=== PATIENT | female | born 1950 | race Caucasian/White ===

== ENCOUNTER 2016-12-26 15:07 | Inpatient (IN) | payer OTHER ==
[~2016-12-26] VITALS: Wt 67.0 kg
[~2016-12-26 15:07] MED LIST: ASPI-535 PO; ATOR40TA68 PO; CALC-143 PO; HYDR25TA6 PO; KETO5DRO58 OP; LOSA25TA2 PO; TRAM50TA2 PO
[2016-12-26] MEDS ORDERED: NITROGLYCERIN 2% 1 GM OINT PKT TD STA (16:06)
[2016-12-26] MEDS ORDERED: ASPIRIN 81 MG TAB PO STA (16:06)
[2016-12-26] MEDS ORDERED: NITROGLYCERIN (SL) 0.4 MG TAB SL PRN ×2 (16:30→18:30)
[2016-12-26 16:33] LABS: BASOPHILS % 0.2 % (0.0-2.0); EOSINOPHILS # 0.5 10^3/ul (0.0-0.5); EOSINOPHILS % 6.6 % (0.0-7.0); HEMATOCRIT 41.7 % (37.0-47.0); HEMOGLOBIN 14.1 g/dl (12.0-16.0); LYMPHOCYTES # 2.3 10^3/ul (0.8-2.9); MEAN CORPUSCULAR HGB CONC 33.7 g/dl (32.0-37.0); MEAN CORPUSCULAR VOLUME 91.7 fl (82.0-101.0); MONOCYTE # 0.3 10^3/ul (0.3-0.9); MONOCYTES % 3.5 % (0.0-11.0); NEUTROPHIL # 4.5 10^3/ul (1.6-7.5); NEUTROPHILS % 59.7 % (39.0-77.0); PLATELET COUNT 220 10^3/UL (140-440); RED BLOOD COUNT 4.55 10^6/ul (4.20-5.40); RED CELL DISTRIBUTION WIDTH 12.3 % (11.5-14.5); UNCORRECTED WBC 7.5 10^3/ul (4.8-10.8); WHITE BLOOD COUNT 7.5 10^3/ul (4.8-10.8)
[2016-12-26 16:34] LABS: CONDITION 1
--- NOTE | 2016-12-26 16:41 | RADRPT ---
PROCEDURE: XR Chest. CLINICAL INDICATION: Chest pain TECHNIQUE: A single portable view of the chest was obtained. COMPARISON: 08/23/2016 FINDINGS: The aorta is tortuous and atherosclerotic. The cardiomediastinal silhouette is otherwise borderline in size. The lungs and pleural spaces are clear. The soft tissues and osseous structures demonstr ate benign age related senescent changes. IMPRESSION: 1. Borderline heart size. 2. Otherwise, no acute cardiopulmonary disease. RPTAT: HPNM Physician Kalee Date Time Electronically viewed and signed by Russ Sorensen Physician on 12/26/2016 16:40 /
[2016-12-26 16:42] LABS: INR 0.97; PROTIME 12.9 Sec (12.2-14.2)
[2016-12-26 16:43] LABS: PARTIAL THROMBOPLASTIN TIME 31.2 Sec (25.0-35.0)
[2016-12-26] MEDS ORDERED: ASPI-664 PO (16:43)
[2016-12-26] MEDS ORDERED: HYDR12.58 PO (16:43)
[2016-12-26] MEDS ORDERED: LOSA100T7 PO (16:44)
[2016-12-26] MEDS ORDERED: ESCI10TA48 PO (16:44)
[2016-12-26 16:45] LABS: CHLORIDE 100 mmol/L (97-110); SODIUM 144 mmol/L (135-144)
[2016-12-26 16:46] LABS: POTASSIUM 3.5 mmol/L (3.5-5.1)
[2016-12-26 16:48] LABS: ANION GAP 16 (8-16); CARBON DIOXIDE 32 mmol/L (21-31); CREATININE 1.02 mg/dl (0.44-1.00)
[2016-12-26 16:49] LABS: BLOOD UREA NITROGEN 18 mg/dl (7-20); CALCIUM 9.9 mg/dl (8.4-10.2); GLUCOSE 116 mg/dl (70-220)
[2016-12-26 17:11] LABS: TROPONIN-I < 0.012 ng/ml (0.00-0.12)
[2016-12-26] MEDS ORDERED: LORAZEPAM 2 MG INJ IV PRN (18:30)
[2016-12-26] MEDS ORDERED: NA PHOSPHATE/BIPHOS 133 ML ENEMA PR PRN (18:30)
[2016-12-26] MEDS ORDERED: morphine 2 MG INJ IV PRN (18:30)
[2016-12-26] MEDS ORDERED: ALBUTEROL/IPRATROPIUM (NEB) 3 ML AMP HHN PRN (18:30)
[2016-12-26] MEDS ORDERED: MAGNESIUM HYDROXIDE 30ML CUP PO PRN (18:30)
[2016-12-26] MEDS ORDERED: hydrALAzine 20 MG INJ IV PRN (18:30)
[2016-12-26] MEDS ORDERED: ACETAMINOPHEN 325 MG TAB PO PRN ×2 (18:30)
[2016-12-26] MEDS ORDERED: DOCUSATE SODIUM 100 MG CAP PO PRN (18:30)
[2016-12-26] MEDS ORDERED: HYDROCODONE/APAP (5/325) TAB PO PRN (18:30)
[2016-12-26] MEDS ORDERED: ONDANSETRON 4 MG INJ IV PRN ×2 (18:30)
[2016-12-26] MEDS ORDERED: NACL 0.9% 3 ML SYG IV SCH (18:30)
--- NOTE | 2016-12-26 18:57 | ERA ---
ER Documentation Chief Complaint Date/Time DATE: 12/26/16 TIME: 18:54 Chief Complaint 170/110, 190/102 at home. also c/o cp HPI Patient is a 66-year-old female with hypertension who presents with chest pain. She also has dizziness and headache for the past 2 weeks. The chest pain has been coming and going for the past 2 weeks but today was constant. She describes it as a pressure-like pain in her left chest as well as palpitations. She does not know the name of her primary doctor. Upon review of old medical records this is the patient's fourth visit to the ER since 2011. ROS All systems reviewed and are negative except as per history of present illness. Medications Home Meds Reported Medications Escitalopram Oxalate* (Escitalopram Oxalate*) 10 Mg Tablet, 10 MG PO DAILY, #30 TAB 12/26/16 Losartan Potassium* (Losartan Potassium*) 100 Mg Tablet, 100 MG PO DAILY, TAB 12/26/16 Hydrochlorothiazide* (Hydrochlorothiazide*) 12.5 Mg Tablet, 12.5 MG PO DAILY, # 30 TAB 12/26/16 Aspirin* (Aspirin* EC) 81 Mg Tablet.dr, 81 MG PO DAILY, TAB 12/26/16 Discontinued Reported Medications Ketotifen Fumarate (ZADITOR) 5 Ml Drops, 5 ML OP, BOTTLE 08/19/16 Calcium Citrate/Vitamin D (Citracal-Vitamin D 200 MG-250) 1 Each Tablet, 1 EACH PO BID, TAB 08/19/16 Atorvastatin* (Atorvastatin*) 40 Mg Tablet, 40 MG PO QHS, #30 TAB 08/19/16 Losartan Potassium* (Cozaar*) 25 Mg Tablet, 25 MG PO DAILY 07/06/12 Hydrochlorothiazide (Hydrochlorothiazide) 25 Mg Tablet, 25 MG PO DAILY 07/06/12 Aspirin Ec (Aspir 81) 81 Mg Tablet.dr, 81 MG PO DAILY 07/06/12 Discontinued Scripts Tramadol HCl (Tramadol HCl) 50 Mg Tablet, 50 MG PO Q4 Y for PAIN, #20 TAB Prov:KAILASH FLYNN 08/20/16 Allergies Allergies: Coded Allergies: No Known Allergy (Unverified , 12/26/16) PMhx/Soc History of Surgery: No Anesthesia Reaction: No Hx Neurological Disorder: No Hx Respiratory Disorders: No Hx Cardiac Disorders: Yes (HTN) Hx Psychiatric Problems: No Hx Miscellaneous Medical Probl: No Hx Alcohol Use: No Hx Substance Use: No Hx Tobacco Use: No Smoking Status: Never smoker FmHx Family History: No coronary disease Physical Exam Vitals Vital Signs Date Time Temp Pulse Resp B/P Pulse Ox O2 Delivery O2 Flow Rate FiO2 12/26/16 17:57 98.4 47 18 180/74 100 Nasal Cannula 2.0 12/26/16 16:15 Nasal Cannula 2 12/26/16 16:14 97.9 52 15 202/92 100 Room Air 12/26/16 15:14 98.1 56 20 223/93 98 Physical Exam Const: No acute distress Head: Atraumatic Eyes: Normal Conjunctiva ENT: Normal External Ears, Nose and Mouth. Neck: Full range of motion..~ No meningismus. Resp: Clear to auscultation bilaterally Cardio: Regular rate and rhythm, no murmurs Abd: Soft, non tender, non distended. Normal bowel sounds Skin: No petechiae or rashes Back: No midline or flank tenderness Ext: No cyanosis, or edema Neur: Awake and alert Psych: Normal Mood and Affect Result Diagram: 12/26/16 1620 12/26/16 1620 Results 24 hrs Laboratory Tests Test 12/26/16 16:20 Activated Partial Thromboplast Time 31.2Sec Anion Gap 16 Basophils # 0.010^3/ul Basophils % 0.2% Blood Urea Nitrogen 18mg/dl Calcium Level 9.9mg/dl Carbon Dioxide Level 32mmol/L Chloride Level 100mmol/L Creatinine 1.02mg/dl Eosinophils # 0.510^3/ul Eosinophils % 6.6% Glucose Level 116mg/dl Hematocrit 41.7% Hemoglobin 14.1g/dl INR International Normalized Ratio 0.97 Lymphocytes # 2.310^3/ul Lymphocytes % 30.0% Mean Corpuscular Hemoglobin 31.0pg Mean Corpuscular Hemoglobin Concent 33.7g/dl Mean Corpuscular Volume 91.7fl Mean Platelet Volume 10.0fl Monocytes # 0.310^3/ul Monocytes % 3.5% Neutrophils # 4.510^3/ul Neutrophils % 59.7% Nucleated Red Blood Cells # 0.010^3/ul Nucleated Red Blood Cells % 0.0/100WBC Platelet Count 87812^3/UL Potassium Level 3.5mmol/L Prothrombin Time 12.9Sec Prothrombin Time Ratio 1.0 Red Blood Count 4.5510^6/ul Red Cell Distribution Width 12.3% Sodium Level 144mmol/L Troponin I < 0.012ng/ml White Blood Count 7.510^3/ul Current Medications Medications (Trade) Dose Ordered Sig/Nacho Route PRN Reason Start Time Stop Time Status Last Admin Dose Admin Aspirin (Aspirin) 162 mg ONCE STAT PO 12/26/16 16:06 12/26/16 16:07 DC 12/26/16 16:26 Nitroglycerin (Nitroglycerin 2% Oint) 1 inch ONCE STAT TD 12/26/16 16:06 12/26/16 16:07 DC 12/26/16 16:26 Nitroglycerin (Nitroglycerin (Sl Tab) 0.4 Mg) 1 tab Q5M UP TO 3 DOSES PRN SL CHEST PAIN 12/26/16 16:30 Ondansetron HCl (Zofran Inj) 4 mg ER BRIDGE PRN IV NAUSEA AND/OR VOMITING 12/26/16 18:30 12/27/16 18:29 Acetaminophen (Tylenol Tab) 650 mg ER BRIDGE PRN PO MILD PAIN/FEVER 12/26/16 18:30 12/27/16 18:29 IV Flush (NS 3 ml) 3 ml PER PROTOCOL IV 12/26/16 18:30 UNV Ondansetron HCl (Zofran Inj) 4 mg Q6H PRN IV NAUSEA AND/OR VOMITING 12/26/16 18:30 UNV Acetaminophen (Tylenol Tab) 650 mg Q6H PRN PO PAIN LEVEL 1-3 OR FEVER 12/26/16 18:30 UNV Acetaminophen/ Hydrocodone Bitart ([place] (5/325)) 1 tab Q6H PRN PO MODERATE PAIN LEVEL 4-6 12/26/16 18:30 UNV Morphine Sulfate (morphine) 2 mg Q4H PRN IV SEVERE PAIN LEVEL 7-10 12/26/16 18:30 UNV Docusate Sodium (Colace) 100 mg Q12H PRN PO CONSTIPATION 12/26/16 18:30 UNV Magnesium Hydroxide (Milk Of Mag) 30 ml DAILY PRN PO CONSTIPATION 12/26/16 18:30 UNV Sodium Biphosphate/ Sodium Phosphate (Fleet Enema) 133 ml DAILY PRN [place] CONSTIPATION 12/26/16 18:30 UNV Pantoprazole (Protonix Iv) 40 mg DAILY@06 IV 12/27/16 06:00 UNV Heparin Sodium (Porcine) 5000 unit 5,000 unit Q12 SC 12/26/16 21:00 UNV Sodium Chloride (1/2 NS) 1,000 ml @ 75 mls/hr [id number] IV 12/26/16 18:27 UNV Lorazepam (Ativan) 0.5 mg Q6H PRN IV ANXIETY 12/26/16 18:30 UNV Albuterol/ Ipratropium (Duoneb) 3 ml Q4H RESP THERAPY PRN HHN SHORTNESS OF BREATH 12/26/16 18:30 UNV Hydralazine HCl (Apresoline) 10 mg Q6H PRN IV ELEVATED BLOOD PRESSURE 12/26/16 18:30 UNV Clonidine (Catapres) 0.1 mg Q6H PRN PO ELEVATED BLOOD PRESSURE 12/26/16 18:30 UNV Nitroglycerin (Nitroglycerin (Sl Tab) 0.4 Mg) 1 tab Q5M PRN SL ANGINA 12/26/16 18:30 UNV Aspirin (Ecotrin) 325 mg DAILY PO 12/27/16 09:00 UNV Escitalopram Oxalate (Lexapro) 10 mg DAILY PO 12/27/16 09:00 UNV Hydrochlorothiazide (Hydrochlorothiazide) 12.5 mg DAILY PO 12/27/16 09:00 UNV Losartan Potassium (Cozaar) 100 mg DAILY PO 12/27/16 09:00 UNV Procedures/MDM EKG #1 read by me: Rate/Rhythm: Sinus bradycardia at a rate of 53 Intervals: Normal Impression: Sinus bradycardia without evidence of ischemia EKG #2 read by me: Rate/Rhythm: Sinus bradycardia at a rate of 48 Intervals: Normal Impression: Sinus bradycardia without evidence of ischemia Chest x-ray shows borderline heart size per radiology. Patient is a 66-year-old female who presents with acute chest pain. I am concerned for possible acute coronary syndrome. The patient also has acute hypertension with a blood pressure of over 200. The patient was given aspirin nitroglycerin and her blood pressure has improved. She will be admitted to Dr. Salcido from the panel team to a telemetry bed. She has bradycardia on 2 EKGs but no signs of ST elevations or depressions. Initial troponin is negative. I doubt pneumonia, pneumothorax, pulmonary embolism, or aortic dissection. Departure Diagnosis: Primary Impression: Chest pain Qualified Code: R07.9 - Chest pain, unspecified type Additional Impression: Hypertension Qualified Code: I10 - Essential hypertension Condition: DMITRIY Meadows MD Dec 26, 2016 18:56
[2016-12-26 19:57] LABS: CREATINE KINASE 97 IU/L (23-200)
[2016-12-26 20:05] LABS: CK-MB 0.68 ng/ml (0.0-2.4)
[2016-12-26 20:11] LABS: TROPONIN-I < 0.012 ng/ml (0.00-0.12)
[2016-12-26] MEDS: SOD CHLORIDE 0.45% 1,000 ML IV SCH (21:40)
[2016-12-26] MEDS: HEPARIN 5,000 UNIT/0.5 ML SYG SC SCH (21:40)
[2016-12-26 22:27] LABS: ADD UMIC YES; URINE BILIRUBIN (Dip) NEGATIVE (NEGATIVE); URINE BLOOD (Dip) TRACE (NEGATIVE); URINE COLOR LT. YELLOW (YELLOW); URINE GLUCOSE (Dip) NEGATIVE (NEGATIVE); URINE KETONES (Dip) NEGATIVE (NEGATIVE); URINE LEUKOCYTE ESTERASE (Dip) 1+ (NEGATIVE); URINE NITRITE (Dip) NEGATIVE (NEGATIVE); URINE TOTAL PROTEIN (Dip) NEGATIVE (NEGATIVE); URINE UROBILINOGEN (Dip) 0.2 E.U./dL (0.1-1.0)
[2016-12-26 22:40] LABS: BACTERIA,URINE RARE; SQUAMOUS EPITHELIAL CELL,UR FEW; URINE RBCS 0-2 /HPF (0)
[2016-12-26 22:48] LABS: CREATINE KINASE 89 IU/L (23-200)
[2016-12-26 22:56] LABS: CK-MB 0.66 ng/ml (0.0-2.4)
[2016-12-26 23:03] LABS: TROPONIN-I < 0.012 ng/ml (0.00-0.12)
[2016-12-27 01:02] LABS: CREATINE KINASE 73 IU/L (23-200)
[2016-12-27 01:12] LABS: CK-MB 0.58 ng/ml (0.0-2.4)
[2016-12-27 01:17] LABS: TROPONIN-I < 0.012 ng/ml (0.00-0.12)
[2016-12-27] MEDS: SOD CHLORIDE 0.45% 1,000 ML IV SCH ×2 (05:33→07:47)
[2016-12-27] MEDS ORDERED: PANTOPRAZOLE 40 MG INJ IV SCH (06:00)
[2016-12-27 06:11] LABS: BASOPHILS % 0.6 % (0.0-2.0); EOSINOPHILS # 0.5 10^3/ul (0.0-0.5); EOSINOPHILS % 7.2 % (0.0-7.0); HEMATOCRIT 34.4 % (37.0-47.0); HEMOGLOBIN 11.7 g/dl (12.0-16.0); LYMPHOCYTES # 2.2 10^3/ul (0.8-2.9); LYMPHOCYTES % 29.7 % (15.0-51.0); MEAN CORPUSCULAR HEMOGLOBIN 31.4 pg (29.0-33.0); MEAN CORPUSCULAR VOLUME 92.5 fl (82.0-101.0); MEAN PLATELET VOLUME 10.4 fl (7.4-10.4); MONOCYTE # 0.4 10^3/ul (0.3-0.9); MONOCYTES % 5.6 % (0.0-11.0); NEUTROPHIL # 4.2 10^3/ul (1.6-7.5); NEUTROPHILS % 56.9 % (39.0-77.0); PLATELET COUNT 185 10^3/UL (140-440); RED BLOOD COUNT 3.72 10^6/ul (4.20-5.40); RED CELL DISTRIBUTION WIDTH 12.2 % (11.5-14.5); UNCORRECTED WBC 7.4 10^3/ul (4.8-10.8); WHITE BLOOD COUNT 7.4 10^3/ul (4.8-10.8)
[2016-12-27 06:13] LABS: CREATINE KINASE 68 IU/L (23-200); POTASSIUM 3.8 mmol/L (3.5-5.1)
[2016-12-27 06:15] LABS: CREATININE 1.02 mg/dl (0.44-1.00)
[2016-12-27 06:16] LABS: MAGNESIUM 2.1 mg/dl (1.7-2.5); PHOSPHORUS 4.8 mg/dl (2.5-4.9)
[2016-12-27 06:21] LABS: CONDITION 1
[2016-12-27 06:23] LABS: CK-MB 0.42 ng/ml (0.0-2.4)
[2016-12-27 06:26] LABS: TROPONIN-I < 0.012 ng/ml (0.00-0.12)
--- NOTE | 2016-12-27 06:48 | HP ---
DATE OF ADMISSION: 12/26/2016 IDENTIFICATION: This is a 66-year-old female. CHIEF COMPLAINT: Chest pain, hypertensive urgency. HISTORY OF PRESENT ILLNESS: This is a 66-year-old female, past medical history of questionable diab etes and hypertension, who presents with chest pain, symptoms been here for 1 day, and headache and dizziness symptoms. She also had ____ vomiting symptoms x2. No nausea, no vomiting. She goes to a local clinic here and has been taking all her medicines at home. She has been having the chest kai n a few days, started on left side of her chest, radiated to the right side. She also had some palp itations as well. The dizziness and headache symptoms actually have been going on for the last 2 we eks, but again, no loss of consciousness. When she came into the ER today, she had a systolic blood pressure 220/90, and that improved to 180/74 after blood pressure medicines were given as well. PAST MEDICAL HISTORY: Stated above. ALLERGIES: NO KNOWN DRUG ALLERGIES. HOME MEDICINES: She is on: 1. Losartan 100 mg daily. 2. Aspirin 81 mg daily. 3. Lexapro 10 mg daily. 4. Hydrochlorothiazide 12.5 mg daily. PAST SURGICAL HISTORY: None. SOCIAL HISTORY: Negative for smoking, drinking, IV drug abuse. FAMILY HISTORY: Positive for hypertension. VITAL SIGNS: T-max 98.4, pulse 47 to 56, respirations 15 to 20, blood pressure 223 to 180 systolic over 93 to 74 diastolic, saturating at 98% room air. PHYSICAL EXAMINATION: GENERAL: The patient is lying in bed, answering questions appropriately. No acute distress. HEENT: Pupils equal, round, react to light. Extraocular muscles intact. NECK: Supple. No thyromegaly. LUNGS: Clear to auscultation bilaterally. CARDIOVASCULAR: S1, S2 heard. No rubs, gallops. ABDOMEN: Soft, nontender, nondistended. Normal bowel sounds. No rebound or guarding. MUSCULOSKELETAL: No lower extremity edema bilaterally. NEUROLOGIC: No focal deficits. LABORATORIES: CBC is normal. Basic metabolic panel is normal. Troponin is negative x1. Coagulati on studies are normal. IMAGING: Chest x-ray: Borderline heart size. No acute cardiopulmonary disease. ASSESSMENT AND PLAN: A 66-year-old female coming in with chest pain symptoms, hypertensive urgency. 1. Chest pain, rule out for acute coronary syndrome. Put her on aspirin, morphine, oxygen, nitrate s. Trend her troponins. Continue her home blood pressure medicines. Get a 2D echocardiogram as we ll. 2. Hypertensive urgency. Hydralazine is going to be written for IV p.r.n. systolic greater than 16 0. Also clonidine p.r.n. Check TSH, A1c and lipid panel. 3. Questionable type 2 diabetes. Will check an A1c for now. If there are any abnormalities, consi allen sliding scale. 4. Gastrointestinal prophylaxis. PPI. 5. Deep venous thrombosis prophylaxis. Heparin subcutaneously. Dictated By: MITALI MOLINA/DONNIE Conf#: [id number] DID#: [id number]
[2016-12-27 07:06] LABS: CHOL/HDL RATIO 3.6 RATIO
[2016-12-27 07:37] LABS: THYROID STIMULATING HORMONE 1.59 MIU/L (0.465-4.680)
--- NOTE | 2016-12-27 08:54 | CONS ---
Date/Time of Note Date/Time of Note DATE: 12/27/16 TIME: 08:47 Assessment/Plan Assessment/Plan Chief Complaint/Hosp Course Chest pain: In the setting of hypertensive urgency. No further symptoms once BP controlled. Ruled out with multiple troponins. Likely subendocardial ischemia due to very high BP and less likely from CAD as only risk factor is HTN. It would be appropriate to do a stress test but this can be done as outpt. Hypertensive urgency: leading to above. BP controlled now -BP control -check echo -if ambulates without chest pain, can be discharged with outpt follow-up Problems: Consultation Date/Type/Reason Admit Date/Time Date of Consultation: Dec 27, 2016 Type of Consultation: Cardiology Reason for Consultation Chest pain Referring Provider: MITALI DENISE Hx of Present Illness 66 yo F with a h/o HTN who presented with SBP 223 and chest pain. The patient ( son interprets) notes that she had chest pain when she came in but since her BP improved she is currently asymptomatic. She is not very active but she is able to walk around without any chest pain and she has not had chest pain in the past. She does feel fatigued and SOB when she walks fast. No orthopnea, PND, edema. No prior cardiac history. per HPI Past Medical History Medical History: hypertension Social History Smoking Status: Never smoker Exam/Review of Systems Vital Signs Vitals Vital Signs Date Time Temp Pulse Resp B/P Pulse Ox O2 Delivery O2 Flow Rate FiO2 12/27/16 06:30 98.3 47 20 137/71 98 Room Air 47 12/27/16 03:45 2.0 Intake and Output 12/26/16 12/26/16 12/27/16 15:00 23:00 07:00 Intake Total 600 ml Balance 600 ml Exam Constitutional: alert, oriented Psych: no complaints Head: atraumatic, normocephalic Neck: supple, No jvd Respiratory: clear to auscultation, No crackles/rales Cardiovascular: nl pulses, regular rate and rhythm, No edema, No systolic murmur Gastrointestinal: non-tender, soft Musculoskeletal: nl extremities to inspection Neurological: nl mental status, nl speech Skin: No rash or lesions Results Result Diagram: 12/27/16 0525 12/27/16 0525 Results 24 hrs Laboratory Tests Test 12/26/16 16:20 12/26/16 19:10 12/26/16 21:50 12/26/16 22:05 Activated Partial Thromboplast Time 31.2 Anion Gap 16 Basophils # 0.0 Basophils % 0.2 Blood Urea Nitrogen 18 Calcium Level 9.9 Carbon Dioxide Level 32 H Chloride Level 100 Creatinine 1.02 H Eosinophils # 0.5 Eosinophils % 6.6 Free Thyroxine 1.15 Glucose Level 116 Hematocrit 41.7 Hemoglobin 14.1 INR International Normalized Ratio 0.97 Lymphocytes # 2.3 Lymphocytes % 30.0 Mean Corpuscular Hemoglobin 31.0 Mean Corpuscular Hemoglobin Concent 33.7 Mean Corpuscular Volume 91.7 Mean Platelet Volume 10.0 Monocytes # 0.3 Monocytes % 3.5 Neutrophils # 4.5 Neutrophils % 59.7 Nucleated Red Blood Cells # 0.0 Nucleated Red Blood Cells % 0.0 Platelet Count 220 Potassium Level 3.5 Prothrombin Time 12.9 Prothrombin Time Ratio 1.0 Red Blood Count 4.55 Red Cell Distribution Width 12.3 Sodium Level 144 Troponin I < 0.012 < 0.012 < 0.012 White Blood Count 7.5 Creatine Kinase 97 89 Creatine Kinase Index 0.7 0.7 Creatinine Kinase MB (Mass) 0.68 0.66 Urine Bacteria RARE Urine Bilirubin NEGATIVE Urine Clarity CLEAR Urine Color LT. YELLOW Urine Glucose NEGATIVE Urine Hemoglobin TRACE Urine Ketones NEGATIVE Urine Leukocyte Esterase 1+ H Urine Microscopic RBC 0-2 Urine Microscopic WBC 2-5 Urine Nitrite NEGATIVE Urine Specific [place] 1.010 Urine Squamous Epithelial Cells FEW Urine Total Protein NEGATIVE Urine Urobilinogen 0.2 E.U./dL Urine pH 6.0 Test 12/27/16 00:25 12/27/16 05:25 Creatine Kinase 73 68 Creatine Kinase Index 0.8 0.6 Creatinine Kinase MB (Mass) 0.58 0.42 Troponin I < 0.012 < 0.012 Anion Gap 14 Basophils # 0.0 Basophils % 0.6 Blood Urea Nitrogen 19 Calcium Level 9.0 Carbon Dioxide Level 31 Chloride Level 102 Cholesterol Level 143 Cholesterol/HDL Ratio 3.6 Creatinine 1.02 H Eosinophils # 0.5 Eosinophils % 7.2 H Glucose Level 93 HDL Cholesterol 39 Hematocrit 34.4 L Hemoglobin 11.7 L LDL Cholesterol, Calculated 88 Lymphocytes # 2.2 Lymphocytes % 29.7 Magnesium Level 2.1 Mean Corpuscular Hemoglobin 31.4 Mean Corpuscular Hemoglobin Concent 34.0 Mean Corpuscular Volume 92.5 Mean Platelet Volume 10.4 Monocytes # 0.4 Monocytes % 5.6 Neutrophils # 4.2 Neutrophils % 56.9 Nucleated Red Blood Cells # 0.0 Nucleated Red Blood Cells % 0.0 Phosphorus Level 4.8 Platelet Count 185 Potassium Level 3.8 Red Blood Count 3.72 L Red Cell Distribution Width 12.2 Sodium Level 143 Thyroid Stimulating Hormone (TSH) 1.590 Triglycerides Level 78 White Blood Count 7.4 Medications Medications Current Medications Ondansetron HCl (Zofran Inj) 4 mg Q6H PRN IV NAUSEA AND/OR VOMITING; Start at 18:30 Acetaminophen (Tylenol Tab) 650 mg Q6H PRN PO PAIN LEVEL 1-3 OR FEVER; Start at 18:30 Acetaminophen/ Hydrocodone Bitart ([place] (5/325)) 1 tab Q6H PRN PO MODERATE PAIN LEVEL 4-6; Start 12/26/16 at 18:30 Morphine Sulfate (morphine) 2 mg Q4H PRN IV SEVERE PAIN LEVEL 7-10; Start 12/26 at 18:30 Docusate Sodium (Colace) 100 mg Q12H PRN PO CONSTIPATION; Start 12/26/16 at 18: 30 Magnesium Hydroxide (Milk Of Mag) 30 ml DAILY PRN PO CONSTIPATION; Start at 18:30 Sodium Biphosphate/ Sodium Phosphate (Fleet Enema) 133 ml DAILY PRN SC CONSTIPATION; Start 12/26/16 at 18:30 Pantoprazole (Protonix Iv) 40 mg DAILY@06 IV Last administered on 12/27/16 05: 30; Admin Dose 40 MG; Start 12/27/16 at 06:00 Heparin Sodium (Porcine) 5000 unit 5,000 unit Q12 SC Last administered on 21:40; Admin Dose 5,000 UNIT; Start 12/26/16 at 21:00 Sodium Chloride (1/2 NS) 1,000 ml @ 75 mls/hr [id number] IV Last administered on 12/27/16 05:33; Admin Dose 75 MLS/HR; Start 12/26/16 at 18:27 Lorazepam (Ativan) 0.5 mg Q6H PRN IV ANXIETY; Start 12/26/16 at 18:30 Hydralazine HCl (Apresoline) 10 mg Q6H PRN IV ELEVATED BLOOD PRESSURE; Start at 18:30 Clonidine (Catapres) 0.1 mg Q6H PRN PO ELEVATED BLOOD PRESSURE; Start 12/26/16 at 18:30 Nitroglycerin (Nitroglycerin (Sl Tab) 0.4 Mg) 1 tab Q5M PRN SL ANGINA; Start at 18:30 Aspirin (Ecotrin) 325 mg DAILY PO ; Start 12/27/16 at 09:00 Escitalopram Oxalate (Lexapro) 10 mg DAILY PO ; Start 12/27/16 at 09:00 Hydrochlorothiazide (Hydrochlorothiazide) 12.5 mg DAILY PO ; Start 12/27/16 at 09:00 Losartan Potassium (Cozaar) 100 mg DAILY PO ; Start 12/27/16 at 09:00 MADHU BRADFORD Dec 27, 2016 08:54
[2016-12-27] MEDS: HEPARIN 5,000 UNIT/0.5 ML SYG SC SCH (09:00)
[2016-12-27] MEDS ORDERED: ESCITALOPRAM 10 MG TAB PO SCH (09:00)
[2016-12-27] MEDS ORDERED: ASPIRIN (EC) 325 MG TAB PO SCH (09:00)
[2016-12-27] MEDS ORDERED: HYDROCHLOROTHIAZIDE 12.5 MG CAP PO SCH (09:00)
[2016-12-27] MEDS ORDERED: LOSARTAN 50 MG TAB PO SCH (09:00)
--- NOTE | 2016-12-27 10:25 | PDOCDIS ---
Discharge Instructions CONDITION Patient Condition: Stable HOME CARE INSTRUCTIONS: Diet Instructions: Low Fat /Cholesterol ACTIVITY: Activity Restrictions: Slowly Increase Activity FOLLOW UP/APPOINTMENTS Appointments Please take your medications as prescribed, and see your doctor in the clinic in 1 week. MITALI DENISE Dec 27, 2016 10:25
--- NOTE | 2016-12-27 11:04 | DS ---
DATE OF ADMISSION: 12/26/2016 DATE OF DISCHARGE: 12/27/2016 A 66-year-old female originally admitted on 12/26/2016, being discharged home on 12/27/2016. HOSPITAL COURSE: The patient came in with chest pain symptoms and also uncontrolled blood pressure. She had hypertensive urgency. She was admitted to telemetry floor. She was ruled out for acute c oronary syndrome as her troponins were negative x3. She had no significant EKG changes. Over the c ourse of her hospital stay, her chest pain symptoms improved. Her blood pressure was improved with medications. She was able to ambulate and tolerate a p.o. diet. Because she had some bradycardia, heart rate was in the 47 to 50 range, we decided to get a cardiology consult. An echocardiogram wa s performed, the results are still pending by the time of this admission and the patient was ambulat ing well without any shortness of breath or dizziness, and no loss of consciousness. The heart doct or felt that there was no further workup that needed to be done as far as the bradycardia, just cont inue to monitor as an outpatient and continue the same medications as the patient is asymptomatic. She will be discharged home today in improved condition. DISCHARGE MEDICATIONS: She will be sent with the following medicines: 1. She will continue aspirin 81 mg daily. 2. Lexapro 10 mg daily. 3. Hydrochlorothiazide 12.5 mg daily. 4. Losartan 100 mg daily. FOLLOWUP: She may follow up with primary care doctor in the clinic in the next 1 to 2 weeks. FINAL DIAGNOSES: 1. Chest pain, ruled out for acute coronary syndrome. 2. Hypertensive urgency, resolved. 3. History of essential hypertension. 4. Sinus bradycardia, asymptomatic. 5. Anxiety. Time spent discharging patient 35 minutes. Dictated By: MITALI CORBIN Conf#: [id number] DID#: [id number]
--- NOTE | 2016-12-27 12:26 | RADRPT ---
Echocardiogram Report Patient Name: SHAINA COTTER Gender: Female Date: 1950 Study Date: 27-Dec-2016 Gi Technician: Efrain Westbrook RDCS Location: Ref. Physician: MITALI DENISE Quality: Good Procedures: Transthoracic echocardiogram with complete 2D, M-Mode, and doppler examination. Indications: Chest Pain. 2D/M Mode Doppler Measurement Value Normal Ranges Measurement Value Normal Ranges LVIDd 2D 5.1 3.5 - 5.6 cm AV Peak [place] 1.6 m/sec LVIDs 2D 2.4 2.1 - 4.1 cm AV Peak PG 10.7 mmHg LVPWd 2D 0.7 0.6 - 1.1 cm LVOT Peak [place] 1.1 m/sec IVSd 2D 0.9 0.6 - 1.1 cm LVOT Peak PG 4.9 mmHg AoR Diam 2D 2.6 2.0 - 3.7 cm MV E Peak [place] 0.9 m/sec EDV 2D 124.7 cm3 MV A Peak [place] 0.7 m/sec ESV 2D 14.1 cm3 MV E/A 1.2 LA Dimen 2D 3.6 2.3 - 4.0 cm MV Decel Time 203 msec MV Decel [place] 4 MV E/A 1.2 TR Peak [place] 2.5 m/sec TR Peak PG 24.4 mmHg RVSP 27.0 mmHg Findings Left Ventricle: Normal left ventricular systolic function. Normal left ventricular cavity size. Normal left ventricular wall thickness. Ejection fraction is visually estimated at 65 %. Tissue Doppler/Mitral Doppler indices are within normal limits. Right Ventricle: Normal right ventricular size. Normal right ventricular systolic function. Left Atrium: The left atrium is normal in size. Right Atrium: The right atrium is normal in size. Mitral Valve: Normal appearance and function of the mitral valve with trace physiologic regurgitation. Aortic Valve: Normal appearance of the aortic valve. No significant aortic stenosis or insufficiency. Tricuspid Valve: Normal appearance of the tricuspid valve. Estimated peak PA systolic pressure 27 mmHg. There is mild tricuspid regurgitation. Pulmonic Valve: Normal pulmonic valve appearance. Pericardium: Normal pericardium with no significant pericardial effusion. Aorta: Normal aortic root. IVC: Normal size and normal respiratory collapse consistent with normal right atrial pressure. Conclusions Normal left ventricular systolic function. Normal left ventricular cavity size. Normal left ventricular wall thickness. Ejection fraction is visually estimated at 65 %. Tissue Doppler/Mitral Doppler indices are within normal limits. No significant valvular stenosis or regurgitation seen. Estimated peak PA systolic pressure 27 mmHg based on RA pressure of 3 mmHg. Electronically Signed By: Allan Campo 27-Dec-2016 12:25:08 -0800 Patient Name: SHAINA COTTER Study Date: [id number]
[2016-12-27 15:06] VITALS: BP 156/68; PULSE 60; RESP 18; TEMP 98.6
== END 2016-12-27 15:06 | disposition home or self-care (01) | DRG 305 ==
LOC: E/R 15:07 → TEL 18:07 → E/R 12-27 07:00
PROVIDERS: ADMIT Hospitalist; ATTEND Hospitalist
DX: I16.0 Hypertensive urgency (principal); R00.1 Bradycardia, unspecified; R07.9 Chest pain, unspecified; F41.9 Anxiety disorder, unspecified
CPT/HCPCS: 36415; 71010; 80048; 80061; 81001; 81003; 82550; 82553; 83036; 83735; 84100; 84439; 84443; 84484; 85025; 85610; 85730; 87086; 93005; 93306; 96372; 96374; C9113